=== PATIENT | male | born 1930 | race Caucasian/White ===

== ENCOUNTER 2021-06-24 12:00 | Observation (INO) | payer MEDICARE ==
[~2021-06-24] VITALS: Ht 182.9 cm; Wt 61.2 kg
[2021-06-24 12:30] LABS: BASOPHILS # (AUTO) 0.1 (0.0-0.1); BASOPHILS % 0.9 % (0.0-1.0); EOSINOPHILS # (AUTO) 0.3 (0.0-0.4); EOSINOPHILS % 4.5 % (0.0-6.0); HEMATOCRIT 32.8 % (38.2-49.6); HEMOGLOBIN 9.9 g/dL (14.0-18.0); LYMPHOCYTES # (AUTO) 1.3 (1.0-3.2); LYMPHOCYTES % 19.5 % (18.0-39.1); MEAN CORPUSCULAR HEMOGLOBIN 25.5 pg (28-32); MEAN CORPUSCULAR HGB CONC 30.2 g/dL (31-35); MEAN CORPUSCULAR VOLUME 84.5 fL (81-99); MONOCYTES # (AUTO) 0.6 (0.2-0.8); MONOCYTES % 8.7 % (4.4-11.3); NEUTROPHILS # (AUTO) 4.4 (2.1-6.9); NEUTROPHILS % 65.9 % (38.7-80.0); PLATELET COUNT 197 x10e3/uL (140-360); RED BLOOD COUNT 3.88 x10e6/uL (4.3-5.7); RED CELL DISTRIBUTION WIDTH 17.2 % (11.7-14.4)
[2021-06-24 12:53] LABS: ALBUMIN 3.7 g/dL (3.5-5.0); ALBUMIN/GLOBULIN RATIO 0.8 (0.8-2.0); CALCIUM 9.8 mg/dL (8.4-10.2); CREATININE, SERUM 1.37 mg/dL (0.72-1.25)
[2021-06-24] MEDS ORDERED: ASPIRIN 325 MG TAB PO ONE (13:45)
[2021-06-24] MEDS ORDERED: ASPIRIN 81 MG CHEW TAB PO ONE (13:45)
[2021-06-24] MEDS ORDERED: NAPROXEN250 MG PO (17:24)
[2021-06-24] MEDS ORDERED: COMBIVENT RESPIM4 GM IH (17:24)
[2021-06-24] MEDS ORDERED: ASPIRIN81 MG PO (17:24)
[2021-06-24] MEDS ORDERED: OMEPRAZOLE40 MG PO (17:24)
[2021-06-24 17:27] VITALS: BP 144/78
[2021-06-24 17:32] VITALS: BP 144/78
[2021-06-24] MEDS ORDERED: METHYLPREDNISOLONE SOD SUCC 40 MG/ML VIAL 1ML IV ONE (18:55)
[2021-06-24] MEDS: ALBUTEROL/IPRATROPIUM 3 ML NEB NEB SCH (19:00)
[2021-06-24] MEDS ORDERED: SODIUM CHLORIDE 0.9% 500ML 500 ML IV SCH (19:15)
[2021-06-24 19:58] LABS: % IRON SATURATION 10 % (15-50); IRON 37 ug/dL (65-175); TOTAL IRON BINDING CAPACITY 358 ug/dL (261-478); TRANSFERRIN 256 mg/dL (174-364)
[2021-06-24 20:00] VITALS: BP 110/66
[2021-06-24 20:08] LABS: CREATINE KINASE MB 1.6 ng/mL (0-5.0)
[2021-06-24 21:00] VITALS: BP 110/66
[2021-06-24] MEDS ORDERED: IRON SUCROSE 100 MG in SODIUM CHLORIDE 0.9% 100 ML 100 ML IV SCH (21:00)
[2021-06-25] VITALS: BP 118/62
[2021-06-25] MEDS: ALBUTEROL/IPRATROPIUM 3 ML NEB NEB SCH ×3 (01:35→13:35)
[2021-06-25 04:00] VITALS: BP 118/82
[2021-06-25 05:02] LABS: BASOPHILS % 0.3 % (0.0-1.0); HEMOGLOBIN 8.9 g/dL (14.0-18.0); LYMPHOCYTES # (AUTO) 0.5 (1.0-3.2); MEAN CORPUSCULAR HEMOGLOBIN 25.5 pg (28-32); MEAN CORPUSCULAR HGB CONC 30.7 g/dL (31-35); MEAN CORPUSCULAR VOLUME 83.1 fL (81-99); MONOCYTES # (AUTO) 0.1 (0.2-0.8); NEUTROPHILS # (AUTO) 2.9 (2.1-6.9); NEUTROPHILS % 84.4 % (38.7-80.0); PLATELET COUNT 164 x10e3/uL (140-360); RED BLOOD COUNT 3.49 x10e6/uL (4.3-5.7); RED CELL DISTRIBUTION WIDTH 17.3 % (11.7-14.4)
[2021-06-25 05:26] LABS: ALBUMIN 3.1 g/dL (3.5-5.0); ALBUMIN/GLOBULIN RATIO 0.8 (0.8-2.0); ANION GAP 12.2 mmol/L (8-16); CALCIUM 8.7 mg/dL (8.4-10.2); CREATININE, SERUM 1.26 mg/dL (0.72-1.25); POTASSIUM 4.2 mmol/L (3.5-5.1)
[2021-06-25 05:49] LABS: CREATINE KINASE MB 1.6 ng/mL (0-5.0)
[2021-06-25 08:28] VITALS: BP 104/59
[2021-06-25] MEDS ORDERED: PREDNISONE 10 MG TAB PO SCH (09:00)
[2021-06-25 09:52] VITALS: BP 104/59
[2021-06-25] MEDS ORDERED: IRON SUCROSE 100 MG in SODIUM CHLORIDE 0.9% 100 ML 100 ML IV SCH (10:00)
[2021-06-25 11:36] VITALS: BP 97/58
[2021-06-25] MEDS ORDERED: FAMOTIDINE 20 MG/2 ML VIAL IV ONE (14:45)
[2021-06-25 16:03] VITALS: BP 95/51
== END 2021-06-25 17:48 | disposition home or self-care (01) ==
LOC: ER 12:18 → ERHOLD 13:39 → MED/SURG2 17:19
PROVIDERS: ADMIT Family Medicine; ATTEND Family Medicine
DX: J44.1 Chronic obstructive pulmonary disease with (acute) exacerbation (principal); D50.9 Iron deficiency anemia, unspecified; N17.9 Acute kidney failure, unspecified; Z20.822 Contact with and (suspected) exposure to COVID-19; R64 Cachexia; Z68.1 Body mass index [BMI] 19.9 or less, adult; E43 Unspecified severe protein-calorie malnutrition; E78.5 Hyperlipidemia, unspecified
CPT/HCPCS: 36415 ×2; 71045; 71250; 80053 ×2; 82105; 82378; 82550 ×2; 82553 ×2; 83540; 83690; 83880; 84466; 84484 ×2; 85025 ×2; 86301; 93005; 94640 ×2; 94799 ×2; 99284; G0378 ×2; J1756; J2920; J7040; J7512; U0002